=== PATIENT | male | born 1950 | race Caucasian/White ===

== ENCOUNTER → 2017-03-27 18:21 | Emergency (ER) | payer MEDICARE ==
[2017-03-27 19:25] VITALS: BP 140/63
== END | disposition left against medical advice (07) ==
LOC: ED 18:21
DX: R51 Headache (principal); Z53.20 Procedure and treatment not carried out because of patient's decision for unspecified reasons
CPT/HCPCS: 99281

== ENCOUNTER 2017-09-19 10:41 | Emergency (ER) | payer MEDICARE ==
[2017-09-19] MEDS ORDERED: methylPREDNISolone 125 MG* 2 ML VIAL IV ONE (10:59)
[2017-09-19] MEDS ORDERED: Albuterol/Ipratropium NEB.SOL* Albuterol 2.5 MG/Ipratropium 0.5 MG 3 ML ONE (11:12)
[2017-09-19] MEDS: Albuterol/Ipratropium NEB.SOL* Albuterol 2.5 MG/Ipratropium 0.5 MG 3 ML INH SCH (11:13)
[2017-09-19 11:27] LABS: Hematocrit 53 % (42-52); Hemoglobin 17.6 g/dl (14.0-18.0); Mean Corpuscular HGB Conc 33 g/dl (31-36); Mean Corpuscular Hemoglobin 30 pg (27-31); Mean Corpuscular Volume 90 fL (80-94); Mean Platelet Volume 9 um3 (7.4-10.4); Red Blood Count 5.86 10^6/ul (4.0-5.4); Red Cell Distribution Width 16 % (10.5-15)
[2017-09-19 11:30] LABS: PCO2 Arterial 40 mmHg (35-45)
[2017-09-19 11:42] LABS: Albumin 3.8 g/dL (3.2-5.2); BUN/Creatinine Ratio 8.5 (8-20); C Reactive Protein 16.28 mg/L (< 5.00); EGFR African American 79.7 (>60); Globulin 3.6 g/dL (2-4); Potassium 4.2 mmol/L (3.5-5.0); Total Protein 7.4 g/dL (6.4-8.9)
--- NOTE | 2017-09-19 12:04 | RAD ---
HISTORY: Shortness of breath COMPARISONS: August 25, 2017 VIEWS: 2: Frontal and lateral views of the chest. FINDINGS: CARDIOMEDIASTINAL SILHOUETTE: The cardiomediastinal silhouette is normal. MATEO: The mateo are normal. PLEURA: The costophrenic angles are sharp. No pleural abnormalities are noted. LUNG PARENCHYMA: There is hyperinflation with flattening of the diaphragm and expansion of the AP diameter of the chest. ABDOMEN: The upper abdomen is clear. There is no subphrenic gas. BONES AND SOFT TISSUES: No bone or soft tissue abnormalities are noted. OTHER: None. IMPRESSION: HYPERINFLATION, CONSISTENT WITH COPD. NO ACTIVE CARDIOPULMONARY DISEASE.
[2017-09-19] MEDS ORDERED: DOXYcycline CAP(*) 100 MG PO ONE (12:34)
[2017-09-19 13:04] VITALS: BP 128/67
--- NOTE | 2017-09-19 18:50 | ED ---
Jose Daniel Angela, scribed for Chandana Tony MD on 09/19/17 at 1101 . Shortness of Breath - HPI Summary HPI Summary: This pt is a 67 y/o male presenting to [facility] c/o intermittent SOB and non- productive cough since last year, worsening since last night. Pt reports he usually takes prednisone and his inhaler with relief of his SOB. He states his symptoms have returned again since last night. His SOB today is characterized as dyspnea at rest. He denies productive cough, fever, chest pain. PMHx: COPD, afib. Pt is a former smoker (quit date 1999). - History of Current Complaint Chief Complaint: EDShortnessOfBreath Time Seen by Provider: 09/19/17 10:54 Hx Obtained From: Patient Onset/Duration: Lasting Hours, Still Present Timing: Constant Dyspnea At: Rest Alleviating Factors: Bronchodilators Associated Signs & Symptoms: Cough (Nonproductive) - Allergy/Home Medications Allergies/Adverse Reactions: Allergies Allergy/AdvReac Type Severity Reaction Status Date / Time Vancomycin Allergy See Comment Verified 10/24/16 13:59 PMH/Surg Hx/FS Hx/Imm Hx Endocrine/Hematology History: Denies: Hx Diabetes Cardiovascular History: Reports: Hx Deep Vein Thrombosis, Hx Hypertension - CONTROL WITH MED, Other Cardiovascular Problems/Disorders - ATRIAL FIB IN THE PAST ? Denies: Hx Congestive Heart Failure, Hx Pacemaker/ICD Respiratory History: Reports: Hx Chronic Obstructive Pulmonary Disease (COPD), Hx Pulmonary Embolism - 08/2014, Other Respiratory Problems/Disorders - pulmonary artery bleed - 1999 Denies: Hx Asthma GI History: Reports: Other GI Disorders - polyps History: Denies: Hx Dialysis, Hx Renal Disease Musculoskeletal History: Reports: Hx Arthritis - RIGHT THUMB, Hx Back Problems - herniated disk, Other Musculoskeletal History - left leg amputation, right toes amputation Sensory History: Reports: Hx Contacts or Glasses - READING GLASSES Denies: Hx Hearing Aid Opthamlomology History: Reports: Hx Contacts or Glasses - READING GLASSES Neurological History: Reports: Hx Nerve Disease - HERITARY NEUROPATHY BILATERAL FEET, LEFT BKA, RIGHT MIDFOOT Psychiatric History: Reports: Hx Substance Abuse - etoh Denies: Hx Panic Disorder - Surgical History Surgery Procedure, Year, and Place: COILS IN CHEST ( NEED MORE INFORMATION - NOT ON ANY PRIOR MRI SCREENINGS - SEEN ON XRAYS - PER PATIENT THEY ARE CLIPPING ARTERY IN LUNG ) ([facility] APRIL 2002). TONSILS AND ADNOIDS CHILD;. R ROTATOR CUFF AT AGE 20;. R toes amputated 2011 [facility];. LEFT FOOT AMPUTATION [facility];. Left lower leg March 2014- [facility]; Hx Anesthesia Reactions: No Infectious Disease History: No Infectious Disease History: Denies: Hx Clostridium Difficile, Hx Hepatitis, Hx Human Immunodeficiency Virus (HIV), Hx Shingles, Hx Tuberculosis, Traveled Outside the [place] in Last 30 Days - Family History Known Family History: Positive: Other - Denies colorectal CA,anesthesia problems ,bleeding/clotting disorders - Social History Alcohol Use: Daily Alcohol Amount: 2 beers Hx Substance Use: No Substance Use Type: Reports: None Hx Tobacco Use: Yes Smoking Status (MU): Former Smoker Type: Cigarettes Amount Used/How Often: 2 PPD Length of Time of Smoking/Using Tobacco: FROM AGE 15-2000 (37 YEARS) Have You Smoked in the Last Year: No Review of Systems Negative: Fever, Chills Negative: Chest Pain Positive: Shortness Of Breath, Cough - non-productive Positive: Other - bilateral leg amputations Skin: Negative Neurological: Negative All Other Systems Reviewed And Are Negative: Yes Physical Exam - Summary Physical Exam Summary: VITAL SIGNS: Reviewed. GENERAL: Patient is an obese male who is lying comfortable in the stretcher. Patient is in some respiratory distress, speaking in full sentences. HEAD AND FACE: No signs of trauma. No ecchymosis, hematomas or skull depressions. No sinus tenderness. EYES: PERRLA, EOMI x 2, No injected conjunctiva, no nystagmus. EARS: Hearing grossly intact. Ear canals and tympanic membranes are within normal limits. MOUTH: Oropharynx within normal limits. NECK: Supple, trachea is midline, no adenopathy, no JVD, no carotid bruit, no c- spine tenderness, neck with full ROM. CHEST: Symmetric, no tenderness at palpation LUNGS: There are decreased breath sounds bilaterally with slight wheezing in both apices of the lungs. CVS: Regular rate and rhythm, S1 and S2 present, no murmurs or gallops appreciated. ABDOMEN: Soft, non-tender. No signs of distention. No rebound no guarding, and no masses palpated. Bowel sounds are normal. EXTREMITIES: no edema, no cyanosis or clubbing. Pt has bilateral lower extremity below the knee amputations. NEURO: Alert and oriented x 3. No acute neurological deficits. Speech is normal and follows commands. SKIN: Dry and warm Triage Information Reviewed: Yes Vital Signs On Initial Exam: Initial Vitals Temp Pulse Resp BP Pulse Ox 97.6 F 92 18 150/77 92 09/19/17 10:42 09/19/17 10:42 09/19/17 10:42 09/19/17 10:42 09/19/17 10:42 Vital Signs Reviewed: Yes Diagnostics - Vital Signs Vital Signs Temp Pulse Resp BP Pulse Ox 09/19/17 10:42 97.6 F 92 18 150/77 92 - Laboratory Lab Results: Lab Results 09/19/17 09/19/17 09/19/17 Range/Units 10:06 10:06 10:06 WBC 13.0 H (3.5-10.8) 10^3/ul RBC 5.86 H (4.0-5.4) 10^6/ul Hgb 17.6 (14.0-18.0) g/dl Hct 53 H (42-52) % MCV 90 (80-94) fL MCH 30 (27-31) pg MCHC 33 (31-36) g/dl RDW 16 H (10.5-15) % Plt Count 223 (150-450) 10^3/ul MPV 9 (7.4-10.4) um3 Neut % (Auto) 73.8 (38-83) % Lymph % (Auto) 10.9 L (25-47) % Gulf % (Auto) 10.9 H (1-9) % Eos % (Auto) 3.8 (0-6) % Baso % (Auto) 0.6 (0-2) % Absolute Neuts (auto) 9.6 H (1.5-7.7) 10^3/ul Absolute Lymphs (auto) 1.4 (1.0-4.8) 10^3/ul Absolute Monos (auto) 1.4 H (0-0.8) 10^3/ul Absolute Eos (auto) 0.5 (0-0.6) 10^3/ul Absolute Basos (auto) 0.1 (0-0.2) 10^3/ul Absolute Nucleated RBC 0.01 10^3/ul Nucleated RBC % 0.1 ABG pH (7.35-7.45) ABG pCO2 (35-45) mmHg ABG pO2 (80-100) mmHg ABG HCO3 (19-31) mmol/L ABG O2 Saturation (95-98) % ABG Base Excess (-2.0-2.0) Sodium 133 (133-145) mmol/L Potassium 4.2 (3.5-5.0) mmol/L Chloride 98 L (101-111) mmol/L Carbon Dioxide 27 (22-32) mmol/L Anion Gap 8 (2-11) mmol/L BUN 10 (6-24) mg/dL Creatinine 1.18 H (0.67-1.17) mg/dL Est GFR ( Amer) 79.7 (>60) Est GFR (Non-Af Amer) 62.0 (>60) BUN/Creatinine Ratio 8.5 (8-20) Glucose 106 H (70-100) mg/dL Calcium 10.0 (8.6-10.3) mg/dL Total Bilirubin 1.00 (0.2-1.0) mg/dL AST 20 (13-39) U/L ALT 14 (7-52) U/L Alkaline Phosphatase 113 H (34-104) U/L Troponin I 0.00 (<0.04) ng/mL C-Reactive Protein 16.28 H (< 5.00) mg/L B-Natriuretic Peptide 131 H ( - 100) pg/mL Total Protein 7.4 (6.4-8.9) g/dL Albumin 3.8 (3.2-5.2) g/dL Globulin 3.6 (2-4) g/dL Albumin/Globulin Ratio 1.1 (1-3) 09/19/ Range/Units 11:20 WBC (3.5-10.8) 10^3/ul RBC (4.0-5.4) 10^6/ul Hgb (14.0-18.0) g/dl Hct (42-52) % MCV (80-94) fL MCH (27-31) pg MCHC (31-36) g/dl RDW (10.5-15) % Plt Count (150-450) 10^3/ul MPV (7.4-10.4) um3 Neut % (Auto) (38-83) % Lymph % (Auto) (25-47) % Gulf % (Auto) (1-9) % Eos % (Auto) (0-6) % Baso % (Auto) (0-2) % Absolute Neuts (auto) (1.5-7.7) 10^3/ul Absolute Lymphs (auto) (1.0-4.8) 10^3/ul Absolute Monos (auto) (0-0.8) 10^3/ul Absolute Eos (auto) (0-0.6) 10^3/ul Absolute Basos (auto) (0-0.2) 10^3/ul Absolute Nucleated RBC 10^3/ul Nucleated RBC % ABG pH 7.43 (7.35-7.45) ABG pCO2 40 (35-45) mmHg ABG pO2 143 H (80-100) mmHg ABG HCO3 26.4 (19-31) mmol/L ABG O2 Saturation 98.4 H (95-98) % ABG Base Excess 2.0 (-2.0-2.0) Sodium (133-145) mmol/L Potassium (3.5-5.0) mmol/L Chloride (101-111) mmol/L Carbon Dioxide (22-32) mmol/L Anion Gap (2-11) mmol/L BUN (6-24) mg/dL Creatinine (0.67-1.17) mg/dL Est GFR ( Amer) (>60) Est GFR (Non-Af Amer) (>60) BUN/Creatinine Ratio (8-20) Glucose (70-100) mg/dL Calcium (8.6-10.3) mg/dL Total Bilirubin (0.2-1.0) mg/dL AST (13-39) U/L ALT (7-52) U/L Alkaline Phosphatase (34-104) U/L Troponin I (<0.04) ng/mL C-Reactive Protein (< 5.00) mg/L B-Natriuretic Peptide ( - 100) pg/mL Total Protein (6.4-8.9) g/dL Albumin (3.2-5.2) g/dL Globulin (2-4) g/dL Albumin/Globulin Ratio (1-3) Result Diagrams: 09/19/17 10:06 09/19/17 10:06 Lab Statement: Any lab studies that have been ordered have been reviewed, and results considered in the medical decision making process. - Radiology Chest XR Xray Interpretation: Positive (See Comments) - IMPRESSION: Hyperinflation, consistent with COPD. No active cardiopulmonary disease. ED physician has reviewed this radiology report and agrees. Radiology Interpretation Completed By: Radiologist - EKG 1105 Cardiac Rate: NL - 91 bpm EKG Rhythm: Atrial Fibrillation EKG Interpretation: No ST elevation Course/Dx - Course Assessment/Plan: This pt is a 67 y/o male presenting to [facility] c/o intermittent SOB and non-productive cough since last year, worsening since last night. Pt reports he usually takes prednisone and his inhaler with relief of his SOB. He states his symptoms have returned again since last night. His SOB today is characterized as dyspnea at rest. He denies productive cough, fever, chest pain. PMHx: COPD, afib. Pt is a former smoker (quit date 1999). Test results show WBC of 13, ABG without any significant abnormalities except for pO2 of 143 , creatinine of 1.18, CRP of 16.28. Chest XR shows hyperinflation, consistent with COPD. No active cardiopulmonary disease. In the ED course, the pt was given IV fluids, duonebs and solu-medrol and his symptoms improved. Because the pt has increased WBC and COPD, I placed the pt on doxycycline. Since the pt is feeling better he will be discharged home with follow up from his PCP. Pt is hemodynamically stable, alert and oriented x3. - Diagnoses Differential Diagnosis/HQI/PQRI: Positive: Asthma, Bronchitis, CHF, Chest Wall Pain, COPD Exacerbation, Pneumonia Provider Diagnoses: COPD exacerbation Discharge - Discharge Plan Condition: Stable Disposition: HOME Prescriptions: Albuterol HFA INHALER* [Ventolin HFA Inhaler*] 1 puff INH Q4H PRN #1 mdi PRN Reason: Wheezing DOXYcycline CAP(*) [DOXYcycline 100MG CAP(*)] 100 mg PO BID #9 cap predniSONE TAB* [Deltasone TAB*] 40 mg PO DAILY #8 tab Patient Education Materials: COPD (Chronic Obstructive Pulmonary Disease) (ED) Referrals: Jassi Manriquez MD [Primary Care Provider] - Additional Instructions: Please follow up with your primary care provider. RETURN TO THE ED FOR ANY WORSENING SYMPTOMS. The documentation as recorded by the Jose carbone Angela accurately reflects the service I personally performed and the decisions made by me, Chandana Tony MD.
--- NOTE | 2017-09-22 13:01 | PN ---
Progress Note - Progress Note Date of Service: 09/19/17 Note: patient diagnosed with COPD exacerbation and placed on doxycycline. patient had sputum culture obtained. grew 1+ yeast and 3+ normal bianca. chest xray obtained at visit and was negative for pneumonia. will forward these results to patient's PCP for comprehensive follow up. no change in treatment at this time as it does not appear to be fungal pneumonia.
== END 2017-09-19 13:11 | disposition home or self-care (01) ==
LOC: ED 10:41
DX: J44.1 Chronic obstructive pulmonary disease with (acute) exacerbation (principal); Z87.891 Personal history of nicotine dependence; Z86.718 Personal history of other venous thrombosis and embolism; I10 Essential (primary) hypertension; G60.9 Hereditary and idiopathic neuropathy, unspecified
CPT/HCPCS: 36415; 36600; 71020; 80053; 82803; 83880; 84484; 85025; 86140; 87070; 87205; 93005; 94640; 96374; 99283; A9270-GY; J2930

== ENCOUNTER 2022-10-05 12:27 | Inpatient (IN) ==
[2022-10-05 13:53] LABS: ABS Lymphocytes 0.4 10^3/ul (1.0-4.8); ABS Monocytes 0.4 10^3/ul (0-0.8); ABS Neutrophils 9.4 10^3/ul (1.5-7.7); Hematocrit 26 % (42-52); Hemoglobin 7.1 g/dL (14.0-18.0); Lymphocyte % 3.6 %; Mean Corpuscular HGB Conc 28 g/dL (31-36); Mean Corpuscular Hemoglobin 18 pg (27-31); Mean Corpuscular Volume 64 fL (80-94); Mean Platelet Volume 8.5 fL (7.4-10.4); Nucleated Red Blood Cells % 0.3; Platelet Count 347 10^3/uL (150-450); Red Blood Count 4.02 10^6 /uL (4.18-5.48); Red Cell Distribution Width 21 % (10-15); White Blood Count 10.2 10^3/uL (3.5-10.8)
[2022-10-05 14:00] LABS: Activated Partial Thrombo Time 31.9 seconds (26.0-38.0); INR 2.73 (0.89-1.11)
[2022-10-05 14:14] LABS: High Sens Troponin Baseline 7 pg/mL (<20)
[2022-10-05 14:28] LABS: ALT 7 U/L (7-52); AST 10 U/L (13-39); Albumin 3.7 g/dL (3.2-5.2); Albumin/Globulin Ratio 1.5 (1-3); Alkaline Phosphatase 101 U/L (35-149); Anion Gap 7 mmol/L (2-11); Blood Urea Nitrogen 14 mg/dL (6-24); CO2 Carbon Dioxide 26 mmol/L (22-32); Calcium 9.1 mg/dL (8.6-10.3); Chloride 95 mmol/L (101-111); Globulin 2.5 g/dL (2-4); Glucose 109 mg/dL (70-100); Sodium 128 mmol/L (135-145); Total Protein 6.2 g/dL (6.4-8.9)
[2022-10-05 15:21] LABS: High Sensitivity Troponin 1 Hr 6 pg/mL (<20)
[2022-10-05 16:10] LABS: Digoxin 1.1 ng/ml (0.8-2.0)
[2022-10-05] MEDS ORDERED: Ondansetron 4 mg VIAL 2 MG/ML 2 ml VIAL IV PRN (16:29)
[2022-10-05] MEDS ORDERED: Albuterol HFA INHALER 8 gm MDI INH PRN (16:31)
[2022-10-05] MEDS: Furosemide 40 mg/4 ml IV VIAL IV SLOW PU SCH (17:34)
[2022-10-05 17:40] LABS: Total Iron Binding Capacity 463 mcg/dL (250-450); Transferrin 331 mg/dL (203-362)
[2022-10-05 17:41] LABS: % Iron Saturation 4 % (15-55); Iron < 20 ug/dL (50-212); Unsaturated Iron Binding 443 ug/dL
[2022-10-05 17:57] LABS: Ferritin 3.9 ng/mL (24-336)
[2022-10-05 18:01] LABS: Corrected Retic Count 1.7 % (0.5-1.5); Hematocrit for Retic CNT 25 % (42-52); RBC Retic Count 3.87 10^6/uL (4.18-5.48)
[2022-10-05 18:19] LABS: Folate 10.64 ng/mL (5.90-24.80); Vitamin B12 448 pg/mL (180-914)
[2022-10-06] MEDS: Albuterol/Ipratropium NEB.SOL (2.5/0.5 MG) 3 ML NEB.SOLN INH PRN ×2 (00:14→07:59)
[2022-10-06 06:35] LABS: ABS Monocytes 1.5 10^3/ul (0-0.8); ABS Neutrophils 9.4 10^3/ul (1.5-7.7); Eosinophil % 0.4 %; Hematocrit 24 % (42-52); Hemoglobin 6.8 g/dL (14.0-18.0); Lymphocyte % 15.7 %; Mean Corpuscular HGB Conc 28 g/dL (31-36); Mean Corpuscular Hemoglobin 18 pg (27-31); Mean Corpuscular Volume 63 fL (80-94); Mean Platelet Volume 8.2 fL (7.4-10.4); Nucleated Red Blood Cells % 0.3; Platelet Count 336 10^3/uL (150-450); Red Blood Count 3.87 10^6 /uL (4.18-5.48); Red Cell Distribution Width 21 % (10-15)
[2022-10-06 06:43] LABS: Magnesium 1.6 mg/dL (1.9-2.7); Potassium 3.5 mmol/L (3.5-5.0); eGFR CKD-EPI 67.1 (>60)
[2022-10-06] MEDS: Furosemide 40 mg/4 ml IV VIAL IV SLOW PU SCH ×2 (09:01→16:58)
[2022-10-06] MEDS ORDERED: Magnesium Sulfate 2 gm BAG 2 GM/50 ML BAG IVPB ONE (09:35)
[2022-10-06 10:23] LABS: Hematocrit 25 % (42-52); Hemoglobin 6.9 g/dL (14.0-18.0); Mean Corpuscular HGB Conc 28 g/dL (31-36); Mean Corpuscular Hemoglobin 17 pg (27-31); Mean Corpuscular Volume 62 fL (80-94); Platelet Count 365 10^3/uL (150-450); Red Blood Count 3.99 10^6 /uL (4.18-5.48); Red Cell Distribution Width 20 % (10-15); White Blood Count 12.4 10^3/uL (3.5-10.8)
[2022-10-06 10:24] LABS: ABS Eosinophils 0.1 10^3/ul (0-0.6); ABS Lymphocytes 1.5 10^3/ul (1.0-4.8); ABS Monocytes 1.6 10^3/ul (0-0.8); ABS Neutrophils 9.2 10^3/ul (1.5-7.7); ABS Nucleated RBC 0.1 10^3/ul; Eosinophil % 0.4 %; Nucleated Red Blood Cells % 0.4
[2022-10-06] MEDS: Pantoprazole VIAL 40 MG VIAL IV SCH (10:24)
[2022-10-06] MEDS ORDERED: Midazolam 5 mg/5 ml VIAL 1 mg/ml 5 ml VIAL (5 mg) ONE (17:38)
[2022-10-06] MEDS ORDERED: fentaNYL 100 mcg/2 ml 50 MCG/ML VIAL ONE (17:38)
[2022-10-06 19:53] LABS: Hematocrit 28 % (42-52); Hemoglobin 8.2 g/dL (14.0-18.0)
[2022-10-07 06:03] LABS: Calcium 8.7 mg/dL (8.6-10.3); Magnesium 1.7 mg/dL (1.9-2.7); Potassium 3.3 mmol/L (3.5-5.0); eGFR CKD-EPI 67.1 (>60)
[2022-10-07] MEDS: Furosemide 40 mg/4 ml IV VIAL IV SLOW PU SCH (08:12)
[2022-10-07] MEDS ORDERED: Iron Sucrose 200 MG in NS 0.9% 100 ml BAG 100 ML IVPB ONE (08:40)
[2022-10-07 08:56] LABS: ABS Basophils 0.1 10^3/ul (0-0.2); ABS Eosinophils 0.1 10^3/ul (0-0.6); ABS Lymphocytes 1.8 10^3/ul (1.0-4.8); ABS Monocytes 1.5 10^3/ul (0-0.8); ABS Neutrophils 7.3 10^3/ul (1.5-7.7); Hematocrit 26 % (42-52); Hemoglobin 7.4 g/dL (14.0-18.0); Lymphocyte % 16.5 %; Mean Corpuscular HGB Conc 29 g/dL (31-36); Mean Corpuscular Hemoglobin 19 pg (27-31); Mean Corpuscular Volume 65 fL (80-94); Mean Platelet Volume 8.7 fL (7.4-10.4); Nucleated Red Blood Cells % 0.2; Platelet Count 311 10^3/uL (150-450); Red Cell Distribution Width 22 % (10-15); White Blood Count 10.8 10^3/uL (3.5-10.8)
[2022-10-07] MEDS: Pantoprazole VIAL 40 MG VIAL IV SCH (09:49)
[2022-10-07] MEDS ORDERED: Magnesium Sulfate IV 3 GM in NS 0.9% 100 ml BAG 100 ML IVPB ONE (09:50)
[2022-10-07 12:37] VITALS: BP 151/61
[2022-10-07 13:06] LABS: Hematocrit 29 % (42-52); Hemoglobin 8.2 g/dL (14.0-18.0)
== END 2022-10-07 14:40 | disposition home or self-care (01) | DRG 291 ==
LOC: ED 12:27 → EDHOLD 16:29 → SUATTDRO 16:29 → EDHOLD 21:00 → MEDTELE 22:12
PROVIDERS: ADMIT Internal Medicine; ATTEND Hospitalist

== ENCOUNTER 2022-11-23 14:40 | Observation (INO) ==
[2022-11-23 16:09] LABS: ABS Basophils 0.1 10^3/ul (0-0.2); ABS Eosinophils 0.1 10^3/ul (0-0.6); ABS Lymphocytes 0.6 10^3/ul (1.0-4.8); ABS Monocytes 0.9 10^3/ul (0-0.8); ABS Neutrophils 8.7 10^3/ul (1.5-7.7); Eosinophil % 0.5 %; Hematocrit 27 % (42-52); Hemoglobin 7.9 g/dL (14.0-18.0); Lymphocyte % 6.1 %; Mean Corpuscular HGB Conc 30 g/dL (31-36); Mean Corpuscular Hemoglobin 20 pg (27-31); Mean Corpuscular Volume 66 fL (80-94); Mean Platelet Volume 8.7 fL (7.4-10.4); Platelet Count 234 10^3/uL (150-450); Red Blood Count 4.02 10^6 /uL (4.18-5.48); Red Cell Distribution Width 22 % (10-15); White Blood Count 10.4 10^3/uL (3.5-10.8)
[2022-11-23 16:30] LABS: Calcium 8.2 mg/dL (8.6-10.3); Creatinine, Serum 1.03 mg/dL (0.67-1.17); Potassium 4.2 mmol/L (3.5-5.0); eGFR CKD-EPI 78.1 (>60)
[2022-11-23] MEDS ORDERED: Albuterol HFA INHALER 8 gm MDI INH PRN (17:16)
[2022-11-23] MEDS ORDERED: Albuterol/Ipratropium NEB.SOL (2.5/0.5 MG) 3 ML NEB.SOLN INH PRN (17:16)
[2022-11-23] MEDS ORDERED: PEG 3000 GI LAVAGE 1 GALLON PO ONE (17:20)
[2022-11-23] MEDS ORDERED: Fluticasone NASAL SPRAY 50MCG 16 gm SPRAY BTL INTRANASAL PRN (17:56)
[2022-11-23 18:13] LABS: Digoxin 1.9 ng/ml (0.8-2.0)
[2022-11-23 22:58] LABS: Hematocrit 26 % (42-52)
[2022-11-24 06:49] LABS: Calcium 8.2 mg/dL (8.6-10.3); Magnesium 1.5 mg/dL (1.9-2.7); Potassium 3.6 mmol/L (3.5-5.0)
[2022-11-24 07:05] LABS: ABS Basophils 0.1 10^3/ul (0-0.2); ABS Eosinophils 0.2 10^3/ul (0-0.6); ABS Lymphocytes 1.4 10^3/ul (1.0-4.8); ABS Monocytes 1.2 10^3/ul (0-0.8); ABS Neutrophils 7.1 10^3/ul (1.5-7.7); Eosinophil % 1.7 %; Hematocrit 26 % (42-52); Hemoglobin 7.5 g/dL (14.0-18.0); Lymphocyte % 14.2 %; Mean Corpuscular HGB Conc 29 g/dL (31-36); Mean Corpuscular Hemoglobin 19 pg (27-31); Mean Corpuscular Volume 66 fL (80-94); Mean Platelet Volume 8.6 fL (7.4-10.4); Platelet Count 237 10^3/uL (150-450); Red Blood Count 3.88 10^6 /uL (4.18-5.48); Red Cell Distribution Width 22 % (10-15)
[2022-11-24] MEDS: CMC:FLUTICAS/UMECLI/VILANT 100-62.5-25 MDI (NF) INH SCH (08:37)
[2022-11-24] MEDS ORDERED: Magnesium Sulfate 2 gm BAG 2 GM/50 ML BAG IVPB ONE (09:01)
[2022-11-24] MEDS ORDERED: PEG 3000 GI LAVAGE 1 GALLON PO ONE (09:15)
[2022-11-24] MEDS: Iron Sucrose 200 MG in NS 0.9% 100 ml BAG 100 ML IVPB SCH (09:47)
[2022-11-24] MEDS ORDERED: Midazolam 10 mg/10 ml VIAL 1 mg/ml 10 ml VIAL (10 mg) ONE (15:10)
[2022-11-24] MEDS ORDERED: fentaNYL 100 mcg/2 ml 50 MCG/ML VIAL ONE (15:10)
[2022-11-25 07:08] LABS: ABS Basophils 0.1 10^3/ul (0-0.2); ABS Eosinophils 0.2 10^3/ul (0-0.6); ABS Lymphocytes 1.6 10^3/ul (1.0-4.8); ABS Monocytes 1.1 10^3/ul (0-0.8); ABS Neutrophils 7.1 10^3/ul (1.5-7.7); Eosinophil % 2.5 %; Hematocrit 26 % (42-52); Hemoglobin 7.8 g/dL (14.0-18.0); Lymphocyte % 15.9 %; Mean Corpuscular HGB Conc 30 g/dL (31-36); Mean Corpuscular Hemoglobin 20 pg (27-31); Mean Corpuscular Volume 68 fL (80-94); Mean Platelet Volume 8.8 fL (7.4-10.4); Nucleated Red Blood Cells % 0.1; Platelet Count 213 10^3/uL (150-450); Red Blood Count 3.87 10^6 /uL (4.18-5.48); Red Cell Distribution Width 23 % (10-15); White Blood Count 10.1 10^3/uL (3.5-10.8)
[2022-11-25 07:39] LABS: Calcium 7.9 mg/dL (8.6-10.3); Creatinine, Serum 1.01 mg/dL (0.67-1.17); Potassium 3.6 mmol/L (3.5-5.0)
[2022-11-25 08:12] LABS: Magnesium 1.8 mg/dL (1.9-2.7)
[2022-11-25] MEDS: CMC:FLUTICAS/UMECLI/VILANT 100-62.5-25 MDI (NF) INH SCH (08:21)
[2022-11-25] MEDS ORDERED: Magnesium Sulfate 2 gm BAG 2 GM/50 ML BAG IVPB ONE (08:31)
[2022-11-25] MEDS: Iron Sucrose 200 MG in NS 0.9% 100 ml BAG 100 ML IVPB SCH (08:56)
[2022-11-25 15:23] VITALS: BP 155/66
== END 2022-11-25 16:20 | disposition home or self-care (01) ==
LOC: ED 14:40 → EDHOLD 14:40 → SUATTDRO 16:55 → MED 20:55
PROVIDERS: ADMIT Internal Medicine; ATTEND Internal Medicine

== ENCOUNTER 2022-12-26 06:32 | Inpatient (IN) ==
[~2022-12-26 06:32] MED LIST: Ertapenem 1 GM in NS 0.9% 50 ML BAG IVPB SCH; Lactated Ringers 1000 ml BAG 1,000 ML IV SCH
[2022-12-26] MEDS ORDERED: Rocuronium 50 mg VIAL 10 mg/ml 5 ml VIAL (50 mg) ONE ×3 (06:47→10:44)
[2022-12-26] MEDS ORDERED: Midazolam 2 mg/2 ml VIAL 1 mg/ml 2 ml VIAL (2 mg) ONE (06:47)
[2022-12-26] MEDS ORDERED: Propofol 10 MG/ML 20 ML BTL ONE ×3 (06:47→11:02)
[2022-12-26] MEDS ORDERED: Lidocaine 2% PF 5 ML VIAL ONE ×2 (06:47→07:56)
[2022-12-26] MEDS ORDERED: fentaNYL 250 mcg/5 ml 50 MCG/ML 5 ml VIAL (250 MCG) ONE (06:48)
[2022-12-26] MEDS ORDERED: Buffered Lidocaine 1% SYRIN 1 ml ONE (07:06)
[2022-12-26] MEDS ORDERED: Bupivacaine 0.25% SDV 30 ML ONE (07:13)
[2022-12-26] MEDS ORDERED: Hydrocortisone INJ 100 MG/2ML 2 ML VIAL ONE (07:29)
[2022-12-26] MEDS: Buffered Lidocaine 1% SYRIN 1 ml INTRADERM ONE (07:33)
[2022-12-26] MEDS ORDERED: Etomidate 20 mg/10 ml 2 MG/ML 10 ml VIAL ONE (07:55)
[2022-12-26] MEDS ORDERED: Dexamethasone IV 4 MG/ML VIAL 1 ml VIAL ONE (08:36)
[2022-12-26] MEDS ORDERED: Acetaminophen IV 1 GM/100ML 1,000 MG/100 ML BAG IV ONE (08:53)
[2022-12-26] MEDS ORDERED: Metoprolol Tartrate 5 mg VIAL 5 ml VIAL (1 mg/ml) ONE (09:12)
[2022-12-26] MEDS ORDERED: Phenylephrine 40 mcg/mL 10mL (400mcg) SYRINGE ONE (09:14)
[2022-12-26] MEDS ORDERED: Ondansetron 4 mg VIAL 2 MG/ML 2 ml VIAL IV PRN ×2 (12:28→12:35)
[2022-12-26] MEDS ORDERED: Albuterol HFA INHALER 8 gm MDI INH PRN (12:31)
[2022-12-26] MEDS ORDERED: Albuterol/Ipratropium NEB.SOL (2.5/0.5 MG) 3 ML NEB.SOLN INH PRN (12:31)
[2022-12-26] MEDS ORDERED: fentaNYL 100 mcg/2 ml 50 MCG/ML VIAL IV PRN (12:35)
[2022-12-26] MEDS ORDERED: Naloxone 0.4 mg VIAL 0.4 mg/ml 1 ml VIAL IV PRN (12:35)
[2022-12-26] MEDS ORDERED: HYDROmorphone 0.5 MG/0.5 ML SYRINGE IV SLOW PU PRN (12:35)
[2022-12-26 13:19] LABS: Calcium 8.1 mg/dL (8.6-10.3); Creatinine, Serum 1.12 mg/dL (0.67-1.17); Potassium 3.3 mmol/L (3.5-5.0); eGFR CKD-EPI 70.7 (>60)
[2022-12-26] MEDS ORDERED: Potassium EFFERVES 25 meq TAB PO ONE (13:23)
[2022-12-26] MEDS ORDERED: KCL 20 MEQ/100 ML IVPREMIX 20 MEQ/100 ML BAG IV ONE (13:23)
[2022-12-26] MEDS ORDERED: Hydrocortisone INJ 100 MG/2ML 2 ML VIAL IV SCH (14:00)
[2022-12-26 14:11] LABS: Hematocrit 42 % (42-52); Hemoglobin 12.8 g/dL (14.0-18.0); Mean Corpuscular HGB Conc 31 g/dL (31-36); Mean Corpuscular Hemoglobin 24 pg (27-31); Mean Corpuscular Volume 78 fL (80-94); Mean Platelet Volume 8.8 fL (7.4-10.4); Platelet Count 159 10^3/uL (150-450); Red Blood Count 5.36 10^6 /uL (4.18-5.48); Red Cell Distribution Width 28 % (10-15); White Blood Count 14.6 10^3/uL (3.5-10.8)
[2022-12-26 14:17] LABS: Calcium 8.3 mg/dL (8.6-10.3); Magnesium 1.6 mg/dL (1.9-2.7); Potassium 3.4 mmol/L (3.5-5.0)
[2022-12-26 14:23] LABS: Creatinine, Serum 1.13 mg/dL (0.67-1.17); eGFR CKD-EPI 69.9 (>60)
[2022-12-26] MEDS ORDERED: Magnesium Sulfate IV 3 GM in NS 0.9% 100 ml BAG 100 ML IVPB ONE (15:42)
[2022-12-26] MEDS ORDERED: Fluticasone NASAL SPRAY 50MCG 16 gm SPRAY BTL INTRANASAL PRN (16:00)
[2022-12-26] MEDS: Hydrocortisone INJ 100 MG/2ML 2 ML VIAL IV SCH ×2 (16:02→21:14)
[2022-12-26] MEDS: Acetaminophen IV 1 GM/100ML 1,000 MG/100 ML BAG IV SCH ×2 (18:17→21:12)
[2022-12-27 05:40] LABS: Hematocrit 41 % (42-52); Hemoglobin 12.6 g/dL (14.0-18.0); Mean Corpuscular HGB Conc 31 g/dL (31-36); Mean Corpuscular Hemoglobin 24 pg (27-31); Mean Corpuscular Volume 78 fL (80-94); Mean Platelet Volume 9.2 fL (7.4-10.4); Platelet Count 173 10^3/uL (150-450); Red Blood Count 5.24 10^6 /uL (4.18-5.48); Red Cell Distribution Width 28 % (10-15); White Blood Count 16.9 10^3/uL (3.5-10.8)
[2022-12-27] MEDS: Hydrocortisone INJ 100 MG/2ML 2 ML VIAL IV SCH (05:42)
[2022-12-27] MEDS: Acetaminophen IV 1 GM/100ML 1,000 MG/100 ML BAG IV SCH ×4 (05:54→20:17)
[2022-12-27 06:08] LABS: ABS Lymphocytes 0.7 10^3/ul (1.0-4.8); ABS Monocytes 1.3 10^3/ul (0-0.8); ABS Neutrophils 14.9 10^3/ul (1.5-7.7)
[2022-12-27 06:17] LABS: Calcium 8.5 mg/dL (8.6-10.3); Creatinine, Serum 1.25 mg/dL (0.67-1.17); Magnesium 2.3 mg/dL (1.9-2.7); Potassium 4.3 mmol/L (3.5-5.0); eGFR CKD-EPI 61.9 (>60)
[2022-12-27] MEDS: FLUTICAS/UMECLI/VILANT 100-62.5-25 MDI (NF) INH SCH (08:27)
[2022-12-27] MEDS: Enoxaparin 40 MG/0.4 ML SYR SUBCUT SCH (08:35)
[2022-12-27] MEDS: Buffered Lidocaine 1% SYRIN 1 ml INTRADERM ONE (08:44)
[2022-12-27] MEDS ORDERED: Influenza vaccine *QUAD* *2022-23* 0.5 ML SYRINGE IM ONE (09:00)
[2022-12-27] MEDS: Benzocaine/Menthol LOZ MT PRN ×2 (12:36→23:29)
[2022-12-27] MEDS ORDERED: Hydrocortisone INJ 100 MG/2ML 2 ML VIAL IV SCH (18:00)
[2022-12-28 06:44] LABS: Hematocrit 38 % (42-52); Hemoglobin 11.5 g/dL (14.0-18.0); Mean Corpuscular HGB Conc 31 g/dL (31-36); Mean Corpuscular Hemoglobin 24 pg (27-31); Mean Corpuscular Volume 79 fL (80-94); Mean Platelet Volume 9.1 fL (7.4-10.4); Platelet Count 173 10^3/uL (150-450); Red Blood Count 4.74 10^6 /uL (4.18-5.48); Red Cell Distribution Width 28 % (10-15); White Blood Count 17.1 10^3/uL (3.5-10.8)
[2022-12-28] MEDS: Acetaminophen IV 1 GM/100ML 1,000 MG/100 ML BAG IV SCH ×4 (06:44→16:31)
[2022-12-28 07:00] LABS: Calcium 8.6 mg/dL (8.6-10.3); Creatinine, Serum 1.42 mg/dL (0.67-1.17); eGFR CKD-EPI 53.2 (>60)
[2022-12-28] MEDS: FLUTICAS/UMECLI/VILANT 100-62.5-25 MDI (NF) INH SCH (07:35)
[2022-12-28] MEDS ORDERED: NS 0.9% 500 ml BAG 500 ML IV ONE (07:48)
[2022-12-28] MEDS: Enoxaparin 40 MG/0.4 ML SYR SUBCUT SCH (08:19)
[2022-12-28 08:37] LABS: ABS Lymphocytes 1.9 10^3/ul (1.0-4.8); ABS Monocytes 1.8 10^3/ul (0-0.8); ABS Neutrophils 13.3 10^3/ul (1.5-7.7); Eosinophil % 0.2 %; Lymphocyte % 11.2 %
[2022-12-28] MEDS: Lactated Ringers 1000 ml BAG 1,000 ML IV SCH ×2 (12:30→21:25)
[2022-12-28] MEDS: Benzocaine/Menthol LOZ MT PRN (21:39)
[2022-12-29] MEDS: Acetaminophen IV 1 GM/100ML 1,000 MG/100 ML BAG IV SCH ×2 (00:31→06:22)
[2022-12-29 05:47] LABS: Hematocrit 31 % (42-52); Hemoglobin 9.6 g/dL (14.0-18.0); Mean Corpuscular HGB Conc 31 g/dL (31-36); Mean Corpuscular Hemoglobin 24 pg (27-31); Mean Corpuscular Volume 79 fL (80-94); Mean Platelet Volume 8.9 fL (7.4-10.4); Platelet Count 167 10^3/uL (150-450); Red Blood Count 3.93 10^6 /uL (4.18-5.48); Red Cell Distribution Width 27 % (10-15); White Blood Count 10.5 10^3/uL (3.5-10.8)
[2022-12-29 05:50] LABS: ABS Eosinophils 0.1 10^3/ul (0-0.6); ABS Monocytes 1.3 10^3/ul (0-0.8); ABS Neutrophils 7.1 10^3/ul (1.5-7.7); Eosinophil % 1.3 %; Lymphocyte % 18.6 %
[2022-12-29 06:13] LABS: Calcium 7.9 mg/dL (8.6-10.3); Creatinine, Serum 1.08 mg/dL (0.67-1.17); Magnesium 1.3 mg/dL (1.9-2.7); Potassium 3.8 mmol/L (3.5-5.0); eGFR CKD-EPI 73.8 (>60)
[2022-12-29 07:31] VITALS: BP 144/73
[2022-12-29] MEDS ORDERED: Magnesium Sulfate IV 3 GM in NS 0.9% 100 ml BAG 100 ML IVPB ONE (07:39)
[2022-12-29] MEDS: Enoxaparin 40 MG/0.4 ML SYR SUBCUT SCH (08:06)
[2022-12-29] MEDS: FLUTICAS/UMECLI/VILANT 100-62.5-25 MDI (NF) INH SCH (08:34)
== END 2022-12-29 11:45 | disposition home or self-care (01) | DRG 330 ==
LOC: AA 06:32 → SSU 12:29
PROVIDERS: ADMIT Surgery; ATTEND Surgery

== ENCOUNTER 2024-08-06 20:45 | Inpatient (IN) ==
[2024-08-06] MEDS: Lactated Ringers 1000 ml BAG 1,000 ML IV ONE ×2 (21:30→22:35)
[2024-08-06 21:39] LABS: ABS Basophils 0.1 10^3/uL (0.0-0.1); ABS Eosinophils 0.1 10^3/uL (0.0-0.5); ABS Lymphocytes 1.4 10^3/uL (1.0-4.8); ABS Monocytes 1.2 10^3/uL (0.0-1.1); ABS Neutrophils 9.1 10^3/uL (1.5-7.6); ABS Nucleated RBC 0.01 10^3/ul; Eosinophil % 0.6 %; Hematocrit 35.5 % (38-53); Hemoglobin 11.8 g/dL (13.2-16.3); Lymphocyte % 11.6 %; Mean Corpuscular Hgb Conc 33.3 g/dL (31-36); Mean Platelet Volume 7.9 fL (7.5-11.2); Platelet Count 250 10^3/uL (150-450); Red Cell Distribution Width 14.5 % (12-17); White Blood Count 11.9 10^3/uL (3.6-10.2)
[2024-08-06 22:04] LABS: Activated Partial Thrombo Time 47.7 seconds (26.0-38.0)
[2024-08-06 22:11] LABS: INR 6.75 (0.85-1.14)
[2024-08-06 22:27] LABS: Albumin 2.3 g/dL (3.2-5.2); Albumin/Globulin Ratio 0.7 (1-3); C Reactive Protein 106.78 mg/L (<8.01); Calcium 8.1 mg/dL (8.6-10.3); Creatinine, Serum 1.28 mg/dL (0.67-1.17); Globulin 3.2 g/dL (2-4); Potassium 4.1 mmol/L (3.5-5.0); Total Bilirubin 1.3 mg/dL (0.2-1.0); Total Protein 5.5 g/dL (6.4-8.9); eGFR CKD-EPI 59.5 (>60)
[2024-08-06] MEDS: Piperacillin/Tazobac 3.375 BAG 3.375 GM/100 ML BAG IV ONE (22:35)
[2024-08-06 22:40] LABS: Urine Appearance Extra Turbid; Urine Bacteria Absent /HPF (Absent); Urine Bilirubin Negative (Negative); Urine Blood 3+ (Negative); Urine Color Dark-Yellow; Urine Glucose Negative (Negative); Urine Ketones 1+ (Negative); Urine Nitrite Negative (Negative); Urine Protein 1+ (>=30 mg/dL) (Negative); Urine Red Blood Cell 3+(>10/hpf) /HPF (0-Trace); Urine Specific Gravity 1.017 (1.002-1.030); Urine Squamous Epithelial Cell Present /HPF (Absent); Urine Urobilinogen Negative (Negative); Urine White Blood Cell 3+(>20/hpf) /HPF (0-Trace); Urine pH 5.5 (5.0-8.0)
[2024-08-06 23:08] LABS: High Sensitivity Troponin 1 Hr 16 pg/mL (<20)
[2024-08-07] MEDS ORDERED: Norepinephrine 4 MG/250mL D5W 4,000 MCG/250 ML BAG IV ONE (00:48)
[2024-08-07] MEDS: Norepinephrine 4 MG/250mL D5W 4,000 MCG/250 ML BAG IV SCH (01:28)
[2024-08-07] MEDS ORDERED: Vancomycin 1,000 MG in NS 0.9% 250 ml 250 ML IVPB ONE (01:45)
[2024-08-07] MEDS ORDERED: Zosyn per Pharmacy NOTE FOLLOW UP SCH (02:00)
[2024-08-07] MEDS ORDERED: Vancomycin per Pharmacy 1 EA NOTE FOLLOW UP SCH (02:00)
[2024-08-07 02:09] LABS: Magnesium 1.4 mg/dL (1.9-2.7)
[2024-08-07 02:33] LABS: Digoxin 0.7 ng/ml (0.8-2.0)
[2024-08-07] MEDS: Iodixanol (CONTRAST) 320 MG/ML 100 ML SDV IV ONE (03:36)
[2024-08-07 03:45] LABS: TSH Ultra Thyroid Stim Horm 11.53 mcIU/mL (0.34-5.60)
[2024-08-07 03:55] LABS: Folate 6.22 ng/mL (5.90-24.80)
[2024-08-07] MEDS ORDERED: Albuterol HFA INHALER 8 gm MDI INH SCH (04:00)
[2024-08-07] MEDS: Magnesium Sulfate 2 gm BAG 2 GM/50 ML BAG IVPB ONE (04:23)
[2024-08-07] MEDS: Vancomycin 1500 MG IV - x ONCE IVPB ONE (04:50)
[2024-08-07] MEDS: Magnesium Sulfate IV 1GM/100ML 1 GM/100 ML BAG IV ONE (05:27)
[2024-08-07 05:30] LABS: ABS Eosinophils 0.1 10^3/uL (0.0-0.5); ABS Lymphocytes 1.3 10^3/uL (1.0-4.8); ABS Neutrophils 6.3 10^3/uL (1.5-7.6); Eosinophil % 1.4 %; Hematocrit 31.9 % (38-53); Hemoglobin 10.7 g/dL (13.2-16.3); Lymphocyte % 14.9 %; Mean Corpuscular Hemoglobin 32.1 pg (27-33); Mean Corpuscular Hgb Conc 33.4 g/dL (31-36); Mean Platelet Volume 8.7 fL (7.5-11.2); Platelet Count 225 10^3/uL (150-450); Red Blood Count 3.32 10^6/uL (4.06-5.63); Red Cell Distribution Width 14.9 % (12-17); White Blood Count 8.8 10^3/uL (3.6-10.2)
[2024-08-07 05:40] LABS: ALT 7 U/L (7-52); Albumin/Globulin Ratio 0.7 (1-3); Alkaline Phosphatase 163 U/L (35-149); Anion Gap 7 mmol/L (2-16); Blood Urea Nitrogen 10 mg/dL (6-24); CO2 Carbon Dioxide 29 mmol/L (22-32); Calcium 7.6 mg/dL (8.6-10.3); Chloride 100 mmol/L (101-111); Creatinine, Serum 1.24 mg/dL (0.67-1.17); Globulin 2.8 g/dL (2-4); Glucose 95 mg/dL (70-100); Magnesium 1.4 mg/dL (1.9-2.7); Sodium 136 mmol/L (135-145); Total Bilirubin 1.1 mg/dL (0.2-1.0); Total Protein 4.8 g/dL (6.4-8.9); eGFR CKD-EPI 61.8 (>60)
[2024-08-07 06:53] LABS: Potassium Redraw 3.5 mmol/L (3.5-5.0)
[2024-08-07] MEDS: Piperacillin/Tazobac 3.375 BAG 3.375 GM/100 ML BAG IV ONE (07:01)
[2024-08-07] MEDS: Sulfur Hexaflouride MICROSPHR 25 MG VIAL IV PRN (08:15)
[2024-08-07 08:28] LABS: INR 7.17 (0.85-1.14)
[2024-08-07] MEDS: ZOSYN 3.375 GM Q8H per EXTENDED INFUSION IV SCH (11:12)
[2024-08-07] MEDS: Phytonadione Oral Solution 5 MG/25 ML UDC PO ONE (11:17)
[2024-08-07 15:19] LABS: Calcium 7.3 mg/dL (8.6-10.3); Creatinine, Serum 1.02 mg/dL (0.67-1.17); Magnesium 1.9 mg/dL (1.9-2.7); Phosphorus 3.4 mg/dL (2.5-5.0); Potassium 3.6 mmol/L (3.5-5.0); eGFR CKD-EPI 78.1 (>60)
[2024-08-07 15:40] LABS: INR 6.62 (0.85-1.14)
[2024-08-07] MEDS: NORMOSOL-R pH 7.4 1000 mL BAG 1,000 ML IV SCH (15:47)
[2024-08-07] MEDS: KCL 20 MEQ/100 ML IVPREMIX 20 MEQ/100 ML BAG IV SCH (17:14)
[2024-08-08] MEDS: Vancomycin 1,750 MG in NS 0.9% 500 ml BAG 500 ML IVPB SCH (06:13)
[2024-08-08 06:57] LABS: Activated Partial Thrombo Time 38.6 seconds (26.0-38.0); INR 2.95 (0.85-1.14)
[2024-08-08 07:36] LABS: ABS Basophils 0.1 10^3/uL (0.0-0.1); ABS Eosinophils 0.3 10^3/uL (0.0-0.5); ABS Lymphocytes 1.4 10^3/uL (1.0-4.8); ABS Monocytes 0.6 10^3/uL (0.0-1.1); ABS Nucleated RBC 0.01 10^3/ul; Eosinophil % 4.5 %; Hematocrit 29.5 % (38-53); Mean Corpuscular Hemoglobin 32.9 pg (27-33); Mean Corpuscular Hgb Conc 33.9 g/dL (31-36); Mean Corpuscular Volume 96.9 fL (80-97); Mean Platelet Volume 8.6 fL (7.5-11.2); Nucleated Red Blood Cells % 0.2 %/100WBC (0.0-0.8); Platelet Count 200 10^3/uL (150-450); Red Blood Count 3.04 10^6/uL (4.06-5.63); Red Cell Distribution Width 14.7 % (12-17); White Blood Count 6.5 10^3/uL (3.6-10.2)
[2024-08-08 07:43] LABS: Calcium 7.1 mg/dL (8.6-10.3); Creatinine, Serum 0.86 mg/dL (0.67-1.17); Magnesium 1.5 mg/dL (1.9-2.7); Potassium 3.6 mmol/L (3.5-5.0)
[2024-08-08] MEDS: Potassium Chlor 20 meq TAB.ER PO ONE (08:54)
[2024-08-08] MEDS: Magnesium Sulfate 2 gm BAG 2 GM/50 ML BAG IVPB ONE (09:21)
[2024-08-08] MEDS: Magnesium Sulf 4 GM/100 ML IV 4,000 MG/100 ML BAG IVPB ONE (10:30)
[2024-08-09 04:33] LABS: ABS Basophils 0.1 10^3/uL (0.0-0.1); ABS Eosinophils 0.2 10^3/uL (0.0-0.5); ABS Lymphocytes 1.7 10^3/uL (1.0-4.8); ABS Monocytes 0.7 10^3/uL (0.0-1.1); ABS Neutrophils 5.8 10^3/uL (1.5-7.6); ABS Nucleated RBC 0.01 10^3/ul; Eosinophil % 2.8 %; Hematocrit 29.2 % (38-53); Hemoglobin 9.8 g/dL (13.2-16.3); Mean Corpuscular Hemoglobin 31.9 pg (27-33); Mean Corpuscular Hgb Conc 33.4 g/dL (31-36); Mean Corpuscular Volume 95.3 fL (80-97); Mean Platelet Volume 8.3 fL (7.5-11.2); Nucleated Red Blood Cells % 0.1 %/100WBC (0.0-0.8); Platelet Count 216 10^3/uL (150-450); Red Blood Count 3.07 10^6/uL (4.06-5.63); Red Cell Distribution Width 14.3 % (12-17); White Blood Count 8.5 10^3/uL (3.6-10.2)
[2024-08-09 05:11] LABS: Calcium 7.2 mg/dL (8.6-10.3); Creatinine, Serum 0.78 mg/dL (0.67-1.17); Magnesium 1.5 mg/dL (1.9-2.7); Potassium 3.6 mmol/L (3.5-5.0); eGFR CKD-EPI 94.8 (>60)
[2024-08-09] MEDS: Magnesium Sulfate 2 gm BAG 2 GM/50 ML BAG IVPB ONE (05:42)
[2024-08-09] MEDS: KCL 20 MEQ/100 ML IVPREMIX 20 MEQ/100 ML BAG IV ONE (05:47)
[2024-08-09] MEDS: Magnesium Sulfate IV 1GM/100ML 1 GM/100 ML BAG IV ONE (07:45)
[2024-08-09] MEDS: Albuterol/Ipratropium NEB.SOL (2.5/0.5 MG) 3 ML NEB.SOLN INH PRN (08:00)
[2024-08-09] MEDS ORDERED: PAIN RELIEVING RUB (MENTHOL/SALICYLATE) 1 APPLIC TUBE TOPICAL PRN (12:11)
[2024-08-09 13:09] LABS: INR 1.88 (0.85-1.14)
[2024-08-10 04:14] LABS: ABS Basophils 0.1 10^3/uL (0.0-0.1); ABS Eosinophils 0.3 10^3/uL (0.0-0.5); ABS Lymphocytes 1.6 10^3/uL (1.0-4.8); ABS Monocytes 0.7 10^3/uL (0.0-1.1); ABS Neutrophils 4.6 10^3/uL (1.5-7.6); ABS Nucleated RBC 0.01 10^3/ul; Eosinophil % 3.7 %; Hematocrit 28.5 % (38-53); Hemoglobin 9.9 g/dL (13.2-16.3); Lymphocyte % 21.8 %; Mean Corpuscular Hgb Conc 34.7 g/dL (31-36); Mean Corpuscular Volume 95.2 fL (80-97); Mean Platelet Volume 8.4 fL (7.5-11.2); Nucleated Red Blood Cells % 0.1 %/100WBC (0.0-0.8); Platelet Count 187 10^3/uL (150-450); Red Cell Distribution Width 14.1 % (12-17); White Blood Count 7.1 10^3/uL (3.6-10.2)
[2024-08-10 04:27] LABS: INR 4.19 (0.85-1.14)
[2024-08-10 04:45] LABS: Creatinine, Serum 0.67 mg/dL (0.67-1.17); Magnesium 1.4 mg/dL (1.9-2.7); Phosphorus 3.5 mg/dL (2.5-5.0); Potassium 3.5 mmol/L (3.5-5.0); eGFR CKD-EPI 99.2 (>60)
[2024-08-10] MEDS ORDERED: Vancomycin Trough Check NOTE FOLLOW UP ONE (06:00)
[2024-08-10] MEDS: Magnesium Sulfate 2 gm BAG 2 GM/50 ML BAG IVPB ONE ×2 (06:08→09:41)
[2024-08-10] MEDS: KCL 20 MEQ/100 ML IVPREMIX 20 MEQ/100 ML BAG IV ONE (06:13)
[2024-08-10] MEDS: Magnesium Sulfate IV 1GM/100ML 1 GM/100 ML BAG IV ONE ×2 (08:33)
[2024-08-10] MEDS ORDERED: Albuterol 2.5mg/3 ml (0.083%) NEB.SOLN INH PRN (11:34)
[2024-08-10] MEDS: Phytonadione IV (Adult) 10 MG in NS 0.9% 50 ML 50 ML IV ONE (12:06)
[2024-08-10] MEDS: Albuterol HFA INHALER 8 gm MDI INH SCH (13:37)
[2024-08-10] MEDS: Midazolam 5 mg/5 ml VIAL 1 mg/ml 5 ml VIAL (5 mg) ONE (14:25)
[2024-08-10 18:21] LABS: INR 2.41 (0.85-1.14)
[2024-08-10] MEDS: Phytonadione Oral Solution 5 MG/25 ML UDC PO ONE (22:28)
[2024-08-11 05:42] LABS: ABS Basophils 0.1 10^3/uL (0.0-0.1); ABS Eosinophils 0.3 10^3/uL (0.0-0.5); ABS Lymphocytes 1.8 10^3/uL (1.0-4.8); ABS Monocytes 0.7 10^3/uL (0.0-1.1); ABS Neutrophils 3.3 10^3/uL (1.5-7.6); Eosinophil % 4.4 %; Hematocrit 28.8 % (38-53); Hemoglobin 9.9 g/dL (13.2-16.3); Lymphocyte % 28.7 %; Mean Corpuscular Hemoglobin 32.5 pg (27-33); Mean Corpuscular Hgb Conc 34.4 g/dL (31-36); Mean Corpuscular Volume 94.5 fL (80-97); Platelet Count 220 10^3/uL (150-450); Red Blood Count 3.04 10^6/uL (4.06-5.63); Red Cell Distribution Width 14.1 % (12-17); White Blood Count 6.2 10^3/uL (3.6-10.2)
[2024-08-11 05:52] LABS: INR 1.88 (0.85-1.14)
[2024-08-11] MEDS: ZOSYN 3.375 GM Q8H per EXTENDED INFUSION IV SCH (06:21)
[2024-08-11 06:27] LABS: Calcium 7.3 mg/dL (8.6-10.3); Creatinine, Serum 0.7 mg/dL (0.67-1.17); Magnesium 1.4 mg/dL (1.9-2.7); Phosphorus 3.6 mg/dL (2.5-5.0); Potassium 3.5 mmol/L (3.5-5.0); eGFR CKD-EPI 97.9 (>60)
[2024-08-11] MEDS: Phytonadione Oral Solution 5 MG/25 ML UDC PO SCH (09:27)
[2024-08-11] MEDS: Potassium Chlor 20 meq TAB.ER PO ONE (12:34)
[2024-08-11] MEDS: Magnesium Sulf 4 GM/100 ML IV 4,000 MG/100 ML BAG IVPB ONE (13:48)
[2024-08-11] MEDS: Furosemide 40 mg/4 ml IV VIAL IV ONE (15:47)
[2024-08-11] MEDS: Albuterol HFA INHALER 8 gm MDI INH SCH (16:00)
[2024-08-11 20:27] LABS: INR 1.43 (0.85-1.14)
[2024-08-11 21:03] LABS: Calcium 7.7 mg/dL (8.6-10.3); Creatinine, Serum 0.79 mg/dL (0.67-1.17); Potassium 3.4 mmol/L (3.5-5.0); eGFR CKD-EPI 94.4 (>60)
[2024-08-11] MEDS: Mometasone/Formoter 200/5 MDI INH SCH (23:13)
[2024-08-11] MEDS: Phytonadione IV (Adult) 10 MG in NS 0.9% 50 ML 50 ML IV ONE (23:36)
[2024-08-12 04:22] LABS: ABS Basophils 0.1 10^3/uL (0.0-0.1); ABS Eosinophils 0.2 10^3/uL (0.0-0.5); ABS Lymphocytes 1.5 10^3/uL (1.0-4.8); ABS Monocytes 0.8 10^3/uL (0.0-1.1); Eosinophil % 4.2 %; Hematocrit 29.5 % (38-53); Hemoglobin 9.9 g/dL (13.2-16.3); Lymphocyte % 26.8 %; Mean Corpuscular Hgb Conc 33.6 g/dL (31-36); Mean Corpuscular Volume 95.2 fL (80-97); Mean Platelet Volume 8.6 fL (7.5-11.2); Platelet Count 255 10^3/uL (150-450); Red Cell Distribution Width 13.9 % (12-17); White Blood Count 5.5 10^3/uL (3.6-10.2)
[2024-08-12 04:55] LABS: Calcium 7.7 mg/dL (8.6-10.3); Creatinine, Serum 0.84 mg/dL (0.67-1.17); Magnesium 1.6 mg/dL (1.9-2.7); Potassium 3.2 mmol/L (3.5-5.0); eGFR CKD-EPI 92.7 (>60)
[2024-08-12] MEDS: NS 0.9% 1000 ml BAG 1,000 ML IV SCH (05:20)
[2024-08-12] MEDS: Magnesium Sulf 4 GM/100 ML IV 4,000 MG/100 ML BAG IVPB ONE (05:27)
[2024-08-12] MEDS: Potassium Chlor 20 meq TAB.ER PO ONE (08:27)
[2024-08-12] MEDS ORDERED: fentaNYL 100 mcg/2 ml 50 MCG/ML VIAL ONE (11:14)
[2024-08-12] MEDS ORDERED: Midazolam 5 mg/5 ml VIAL 1 mg/ml 5 ml VIAL (5 mg) ONE (11:14)
[2024-08-12] MEDS ORDERED: Lidocaine 1% VIAL 10 MG/ML 30 ML VIAL ONE (11:14)
[2024-08-12] MEDS ORDERED: ceFAZolin 2 GM PREMIX 0 GM/0 ML BAG ONE (11:32)
[2024-08-12] MEDS: ceFAZolin 2 GM PREMIX 2 GM/50 ML BAG IV ONE (13:12)
[2024-08-12] MEDS: ceFAZolin SYR FLUSH 1 GM/10 ML for pocket flush (cardiology) FLUSH ONE (13:13)
[2024-08-12] MEDS: Midazolam 10 mg/10 ml VIAL 1 mg/ml 10 ml VIAL (10 mg) IV SLOW PU ONE (13:13)
[2024-08-12] MEDS: fentaNYL 100 mcg/2 ml 50 MCG/ML VIAL IV SLOW PU ONE (13:13)
[2024-08-13 04:50] LABS: ABS Basophils 0.1 10^3/uL (0.0-0.1); ABS Eosinophils 0.2 10^3/uL (0.0-0.5); ABS Lymphocytes 1.3 10^3/uL (1.0-4.8); ABS Monocytes 0.7 10^3/uL (0.0-1.1); ABS Neutrophils 2.9 10^3/uL (1.5-7.6); Hematocrit 29.4 % (38-53); Hemoglobin 10.2 g/dL (13.2-16.3); Mean Corpuscular Hemoglobin 32.8 pg (27-33); Mean Corpuscular Hgb Conc 34.5 g/dL (31-36); Mean Corpuscular Volume 95.1 fL (80-97); Mean Platelet Volume 8.8 fL (7.5-11.2); Platelet Count 255 10^3/uL (150-450); Red Cell Distribution Width 14.2 % (12-17); White Blood Count 5.1 10^3/uL (3.6-10.2)
[2024-08-13 05:42] LABS: Calcium 7.4 mg/dL (8.6-10.3); Creatinine, Serum 0.76 mg/dL (0.67-1.17); Magnesium 1.6 mg/dL (1.9-2.7); Phosphorus 3.8 mg/dL (2.5-5.0); Potassium 3.5 mmol/L (3.5-5.0); eGFR CKD-EPI 95.5 (>60)
[2024-08-13] MEDS: Magnesium Sulf 4 GM/100 ML IV 4,000 MG/100 ML BAG IVPB ONE (08:09)
[2024-08-13] MEDS: Potassium Chlor 20 meq TAB.ER PO SCH (09:17)
[2024-08-13] MEDS: Digoxin IV 0.5 MG/2 ML AMP (0.25 MG/ML) IV SLOW PU ONE ×2 (09:44→10:19)
[2024-08-13] MEDS ORDERED: Potassium Chlor 20 meq TAB.ER PO ONE (10:34)
[2024-08-14 05:14] LABS: ABS Eosinophils 0.2 10^3/uL (0.0-0.5); ABS Lymphocytes 1.5 10^3/uL (1.0-4.8); ABS Monocytes 0.8 10^3/uL (0.0-1.1); ABS Neutrophils 2.5 10^3/uL (1.5-7.6); Eosinophil % 3.7 %; Hematocrit 29.1 % (38-53); Hemoglobin 9.9 g/dL (13.2-16.3); Mean Corpuscular Hgb Conc 34.1 g/dL (31-36); Mean Corpuscular Volume 93.8 fL (80-97); Mean Platelet Volume 9.2 fL (7.5-11.2); Nucleated Red Blood Cells % 0.1 %/100WBC (0.0-0.8); Platelet Count 262 10^3/uL (150-450); Red Cell Distribution Width 14.3 % (12-17)
[2024-08-14 05:37] LABS: Calcium 7.8 mg/dL (8.6-10.3); Creatinine, Serum 0.79 mg/dL (0.67-1.17); Magnesium 1.6 mg/dL (1.9-2.7); Potassium 3.7 mmol/L (3.5-5.0); eGFR CKD-EPI 94.4 (>60)
[2024-08-14] MEDS: Magnesium Sulfate 2 gm BAG 2 GM/50 ML BAG IVPB ONE (10:52)
[2024-08-14] MEDS: Nystatin TOP POWDER 15 GM BTL TOPICAL SCH (11:25)
[2024-08-14] MEDS: Magnesium Sulfate IV 1GM/100ML 1 GM/100 ML BAG IV ONE (12:29)
[2024-08-14 17:55] VITALS: BP 139/115
== END 2024-08-14 18:25 | disposition left against medical advice (07) | DRG 981 ==
LOC: ED 20:45 → EDHOLD 08-07 01:37 → ICU 08-07 02:27 → MEDTELE 08-14 05:57
PROVIDERS: ADMIT Student in an Organized Health Care Education/Training Program; ATTEND Internal Medicine

== ENCOUNTER 2024-08-17 17:45 | Inpatient (IN) ==
[2024-08-17] MEDS ORDERED: Norepinephrine 4 MG/250mL D5W 4,000 MCG/250 ML BAG IV ONE (18:13)
[2024-08-17 18:14] LABS: ABS Basophils 0.1 10^3/uL (0.0-0.1); ABS Eosinophils 0.2 10^3/uL (0.0-0.5); ABS Lymphocytes 1.3 10^3/uL (1.0-4.8); ABS Monocytes 1.2 10^3/uL (0.0-1.1); ABS Neutrophils 6.6 10^3/uL (1.5-7.6); ABS Nucleated RBC 0.01 10^3/ul; Eosinophil % 1.8 %; Hematocrit 31.5 % (38-53); Hemoglobin 10.3 g/dL (13.2-16.3); Lymphocyte % 13.4 %; Mean Corpuscular Hemoglobin 31.3 pg (27-33); Mean Corpuscular Hgb Conc 32.7 g/dL (31-36); Mean Corpuscular Volume 95.7 fL (80-97); Mean Platelet Volume 8.9 fL (7.5-11.2); Nucleated Red Blood Cells % 0.1 %/100WBC (0.0-0.8); Platelet Count 320 10^3/uL (150-450); Red Blood Count 3.29 10^6/uL (4.06-5.63); Red Cell Distribution Width 14.1 % (12-17); White Blood Count 9.3 10^3/uL (3.6-10.2)
[2024-08-17] MEDS: Lactated Ringers 1000 ml BAG 1,000 ML IV ONE (18:17)
[2024-08-17 18:21] LABS: INR 1.27 (0.85-1.14)
[2024-08-17 18:38] LABS: High Sens Troponin Baseline 14 pg/mL (<20)
[2024-08-17] MEDS: Norepinephrine 4 MG/250mL D5W 4,000 MCG/250 ML BAG IV SCH ×2 (18:40→21:35)
[2024-08-17 18:57] LABS: ALT 10 U/L (7-52); AST 39 U/L (13-39); Albumin/Globulin Ratio 0.6 (1-3); Alcohol, S < 13 mg/dL (<13); Alkaline Phosphatase 172 U/L (35-149); Anion Gap 9 mmol/L (2-16); Blood Urea Nitrogen 11 mg/dL (6-24); CO2 Carbon Dioxide 26 mmol/L (22-32); Calcium 8.7 mg/dL (8.6-10.3); Chloride 98 mmol/L (101-111); Creatinine, Serum 1.86 mg/dL (0.67-1.17); Digoxin 0.7 ng/ml (0.8-2.0); Globulin 3.4 g/dL (2-4); Glucose 62 mg/dL (70-100); Magnesium 1.7 mg/dL (1.9-2.7); Potassium 4.9 mmol/L (3.5-5.0); Sodium 133 mmol/L (135-145); Total Bilirubin 0.8 mg/dL (0.2-1.0); Total Protein 5.4 g/dL (6.4-8.9)
[2024-08-17] MEDS ORDERED: Norepinephrine 4 MG/250mL NS 4,000 MCG/250 ML BAG IV SCH (19:00)
[2024-08-17 19:40] LABS: High Sensitivity Troponin 1 Hr 14 pg/mL (<20)
[2024-08-17] MEDS ORDERED: Zosyn per Pharmacy NOTE FOLLOW UP SCH (20:00)
[2024-08-17] MEDS: Digoxin IV 0.5 MG/2 ML AMP (0.25 MG/ML) IV SLOW PU ONE (21:26)
[2024-08-17] MEDS: Piperacillin/Tazobac 3.375 BAG 3.375 GM/100 ML BAG IV ONE (21:26)
[2024-08-17 21:28] LABS: PCO2 Arterial 51 mmHg (35-45); PO2 Arterial 89 mmHg (80-100)
[2024-08-17] MEDS: Levalbuterol 1.25MG/0.5ML NEB.SOL INH ONE (21:35)
[2024-08-17] MEDS: Magnesium Sulfate 2 gm BAG 2 GM/50 ML BAG IVPB ONE (21:48)
[2024-08-17] MEDS: PHENYLEPHRINE DRIP IVPREMIX 50 MG/250 ML BAG IV SCH (22:06)
[2024-08-18] MEDS ORDERED: Sulfur Hexaflouride MICROSPHR 25 MG VIAL IV PRN (01:32)
[2024-08-18] MEDS: VASOPRESSIN IVPREMIX BTL 40 UNIT/100 ML BTL IV SCH ×2 (01:53→23:27)
[2024-08-18] MEDS: Dextrose 50% Syringe 50 ml 25 GM/50 ML SYRINGE IV PUSH PRN (04:31)
[2024-08-18 04:36] LABS: Hematocrit 30.3 % (38-53); Mean Corpuscular Hemoglobin 31.3 pg (27-33); Mean Corpuscular Hgb Conc 33.1 g/dL (31-36); Mean Corpuscular Volume 94.7 fL (80-97); Mean Platelet Volume 8.9 fL (7.5-11.2); Platelet Count 327 10^3/uL (150-450); Red Cell Distribution Width 14.1 % (12-17); White Blood Count 10.7 10^3/uL (3.6-10.2)
[2024-08-18 04:38] LABS: INR 1.29 (0.85-1.14)
[2024-08-18 04:39] LABS: ABS Basophils 0.1 10^3/uL (0.0-0.1); ABS Eosinophils 0.2 10^3/uL (0.0-0.5); ABS Lymphocytes 1.2 10^3/uL (1.0-4.8); ABS Monocytes 1.6 10^3/uL (0.0-1.1); ABS Neutrophils 7.6 10^3/uL (1.5-7.6); Eosinophil % 1.6 %; Lymphocyte % 11.1 %
[2024-08-18] MEDS: PHENYLEPHRINE DRIP IVPREMIX 50 MG/250 ML BAG IV SCH (04:39)
[2024-08-18] MEDS: Dextrose 50% Syringe 50 ml 25 GM/50 ML SYRINGE ONE (04:42)
[2024-08-18 04:45] LABS: PCO2 Arterial 45 mmHg (35-45); PO2 Arterial 91 mmHg (80-100)
[2024-08-18 05:06] LABS: Urine Appearance Turbid; Urine Bilirubin 1+ (Negative); Urine Blood Trace (Negative); Urine Color Dark-Yellow; Urine Glucose Negative (Negative); Urine Ketones Trace (Negative); Urine Nitrite Negative (Negative); Urine Protein Trace (Negative); Urine Urobilinogen Negative (Negative); Urine pH 5.5 (5.0-8.0)
[2024-08-18 05:10] LABS: Urine Bacteria 1+ /HPF (Absent); Urine Red Blood Cell 1+(3-5/hpf) /HPF (0-Trace); Urine Squamous Epithelial Cell Present /HPF (Absent); Urine White Blood Cell 3+(>20/hpf) /HPF (0-Trace)
[2024-08-18 05:15] LABS: Calcium 8.4 mg/dL (8.6-10.3); Creatinine, Serum 1.81 mg/dL (0.67-1.17); Magnesium 1.9 mg/dL (1.9-2.7); Potassium 4.7 mmol/L (3.5-5.0); eGFR CKD-EPI 39.2 (>60)
[2024-08-18] MEDS: Lactated Ringers 1000 ml BAG 1,000 ML IV ONE (05:34)
[2024-08-18] MEDS: DOXYcycline 100 MG in NS 0.9% 250 ml 250 ML IVPB SCH (05:35)
[2024-08-18] MEDS: Hydrocortisone INJ 100 MG/2ML 2 ML VIAL IV ONE (05:43)
[2024-08-18] MEDS: Albuterol/Ipratropium NEB.SOL (2.5/0.5 MG) 3 ML NEB.SOLN INH PRN (08:13)
[2024-08-18] MEDS: Digoxin IV 0.5 MG/2 ML AMP (0.25 MG/ML) IV SLOW PU ONE (10:11)
[2024-08-18] MEDS: Albumin Human 5% 12.5 GM/250 ML BTL IV ONE (10:13)
[2024-08-18] MEDS: cefTRIAXone 1 gm/50 mL D5W 1 GM/50 ML BAG IV SCH (13:02)
[2024-08-18] MEDS: Hydrocortisone INJ 100 MG/2ML 2 ML VIAL IV SCH (18:27)
[2024-08-19 04:53] LABS: ABS Lymphocytes 0.6 10^3/uL (1.0-4.8); ABS Monocytes 0.6 10^3/uL (0.0-1.1); ABS Neutrophils 7.4 10^3/uL (1.5-7.6); Hematocrit 27.5 % (38-53); Hemoglobin 9.3 g/dL (13.2-16.3); Lymphocyte % 7.4 %; Mean Corpuscular Hemoglobin 31.9 pg (27-33); Mean Corpuscular Hgb Conc 33.7 g/dL (31-36); Mean Corpuscular Volume 94.7 fL (80-97); Platelet Count 282 10^3/uL (150-450); Red Blood Count 2.91 10^6/uL (4.06-5.63); White Blood Count 8.7 10^3/uL (3.6-10.2)
[2024-08-19 05:13] LABS: Creatinine, Serum 1.41 mg/dL (0.67-1.17); Magnesium 1.6 mg/dL (1.9-2.7); Potassium 4.7 mmol/L (3.5-5.0); eGFR CKD-EPI 52.9 (>60)
[2024-08-19] MEDS ORDERED: Thiamine 100 MG/ML 2 ml VIAL 500 MG in NS 0.9% 250 ml 250 ML IV ONE (08:59)
[2024-08-19] MEDS: Magnesium Sulf 4 GM/100 ML IV 4,000 MG/100 ML BAG IVPB ONE (09:45)
[2024-08-19] MEDS: Gabapentin 600 mg TAB (NF) PO SCH (09:58)
[2024-08-19] MEDS: THIAMINE IV ONE (10:10)
[2024-08-19] MEDS: NS 0.9% IV ONE (10:10)
[2024-08-19] MEDS ORDERED: Thiamine 100 MG/ML 2 ml VIAL (200 mg) IV SCH (12:00)
[2024-08-19 17:15] LABS: PCO2 Arterial 39 mmHg (35-45); PO2 Arterial 106 mmHg (80-100)
[2024-08-19] MEDS: Lactated Ringers 1000 ml BAG 500 ML IV ONE (17:56)
[2024-08-19] MEDS: Enoxaparin 100 MG/ML SYR SUBCUT ONE (21:09)
[2024-08-19] MEDS ORDERED: Thiamine 100 MG/ML 2 ml VIAL 500 MG in NS 0.9% 250 ml 250 ML IV SCH (21:31)
[2024-08-19] MEDS: Thiamine 100 MG/ML 2 ml VIAL 500 MG in NS 0.9% 250 ml 250 ML IV SCH (21:38)
[2024-08-19] MEDS: THIAMINE IV SCH (21:41)
[2024-08-19] MEDS: NS 0.9% IV SCH (21:41)
[2024-08-20 04:17] LABS: ABS Lymphocytes 0.6 10^3/uL (1.0-4.8); ABS Monocytes 0.5 10^3/uL (0.0-1.1); ABS Neutrophils 7.2 10^3/uL (1.5-7.6); Hematocrit 27.5 % (38-53); Lymphocyte % 7.1 %; Mean Corpuscular Hgb Conc 32.8 g/dL (31-36); Mean Corpuscular Volume 94.6 fL (80-97); Mean Platelet Volume 8.8 fL (7.5-11.2); Platelet Count 281 10^3/uL (150-450); Red Cell Distribution Width 13.9 % (12-17); White Blood Count 8.3 10^3/uL (3.6-10.2)
[2024-08-20 04:47] LABS: Creatinine, Serum 1.03 mg/dL (0.67-1.17); Phosphorus 3.7 mg/dL (2.5-5.0); Potassium 4.2 mmol/L (3.5-5.0); eGFR CKD-EPI 77.2 (>60)
[2024-08-20] MEDS: Digoxin IV 0.5 MG/2 ML AMP (0.25 MG/ML) IV SLOW PU SCH (17:03)
[2024-08-21 04:34] LABS: ABS Lymphocytes 0.6 10^3/uL (1.0-4.8); ABS Monocytes 0.6 10^3/uL (0.0-1.1); ABS Neutrophils 6.3 10^3/uL (1.5-7.6); Hematocrit 28.3 % (38-53); Hemoglobin 9.2 g/dL (13.2-16.3); Lymphocyte % 7.7 %; Mean Corpuscular Hgb Conc 32.6 g/dL (31-36); Mean Corpuscular Volume 95.2 fL (80-97); Mean Platelet Volume 8.7 fL (7.5-11.2); Nucleated Red Blood Cells % 0.1 %/100WBC (0.0-0.8); Platelet Count 296 10^3/uL (150-450); Red Blood Count 2.98 10^6/uL (4.06-5.63); Red Cell Distribution Width 13.9 % (12-17); White Blood Count 7.5 10^3/uL (3.6-10.2)
[2024-08-21 05:08] LABS: Calcium 8.2 mg/dL (8.6-10.3); Creatinine, Serum 0.87 mg/dL (0.67-1.17); Magnesium 1.7 mg/dL (1.9-2.7); Potassium 4.2 mmol/L (3.5-5.0); eGFR CKD-EPI 91.7 (>60)
[2024-08-21] MEDS: Magnesium Sulfate 2 gm BAG 2 GM/50 ML BAG IVPB ONE ×2 (06:13→08:59)
[2024-08-21] MEDS ORDERED: Magnesium Sulfate IV 1GM/100ML 1 GM/100 ML BAG IV ONE (09:20)
[2024-08-21] MEDS: PHENYLEPHRINE DRIP IVPREMIX 50 MG/250 ML BAG IV SCH (11:17)
[2024-08-22 04:47] LABS: ABS Lymphocytes 0.5 10^3/uL (1.0-4.8); ABS Monocytes 0.4 10^3/uL (0.0-1.1); Hematocrit 26.3 % (38-53); Hemoglobin 8.8 g/dL (13.2-16.3); Lymphocyte % 12.3 %; Mean Corpuscular Hemoglobin 31.4 pg (27-33); Mean Corpuscular Hgb Conc 33.3 g/dL (31-36); Mean Corpuscular Volume 94.3 fL (80-97); Mean Platelet Volume 8.5 fL (7.5-11.2); Nucleated Red Blood Cells % 0.1 %/100WBC (0.0-0.8); Platelet Count 249 10^3/uL (150-450); Red Blood Count 2.79 10^6/uL (4.06-5.63); Red Cell Distribution Width 13.7 % (12-17); White Blood Count 3.8 10^3/uL (3.6-10.2)
[2024-08-22 06:48] LABS: Creatinine, Serum 0.72 mg/dL (0.67-1.17); Magnesium 1.7 mg/dL (1.9-2.7); Phosphorus 1.2 mg/dL (2.5-5.0); Potassium 4.2 mmol/L (3.5-5.0); eGFR CKD-EPI 97.1 (>60)
[2024-08-22] MEDS: Magnesium Sulfate 2 gm BAG 2 GM/50 ML BAG IVPB ONE (07:31)
[2024-08-22] MEDS: Potassium & Sodium Phos 250 mg = 1 PACKET PO SCH (07:33)
[2024-08-22] MEDS: Magnesium Sulfate IV 1GM/100ML 1 GM/100 ML BAG IV ONE (09:24)
[2024-08-22] MEDS: Nystatin TOP POWDER 15 GM BTL TOPICAL SCH (23:54)
[2024-08-23 06:07] LABS: ABS Lymphocytes 0.6 10^3/uL (1.0-4.8); ABS Monocytes 0.6 10^3/uL (0.0-1.1); Eosinophil % 0.1 %; Hematocrit 27.6 % (38-53); Hemoglobin 9.1 g/dL (13.2-16.3); Lymphocyte % 11.5 %; Mean Corpuscular Hemoglobin 31.6 pg (27-33); Mean Corpuscular Hgb Conc 33.1 g/dL (31-36); Mean Corpuscular Volume 95.4 fL (80-97); Mean Platelet Volume 8.9 fL (7.5-11.2); Nucleated Red Blood Cells % 0.1 %/100WBC (0.0-0.8); Platelet Count 247 10^3/uL (150-450); Red Blood Count 2.89 10^6/uL (4.06-5.63); Red Cell Distribution Width 14.3 % (12-17); White Blood Count 5.2 10^3/uL (3.6-10.2)
[2024-08-23 06:24] LABS: Anion Gap 3 mmol/L (2-16); Blood Urea Nitrogen 13 mg/dL (6-24); CO2 Carbon Dioxide 31 mmol/L (22-32); Calcium 8.2 mg/dL (8.6-10.3); Chloride 106 mmol/L (101-111); Creatinine, Serum 0.64 mg/dL (0.67-1.17); Glucose 104 mg/dL (70-100); Potassium 4.1 mmol/L (3.5-5.0); Sodium 140 mmol/L (135-145); eGFR CKD-EPI 100.6 (>60)
[2024-08-23 06:42] LABS: Magnesium 1.8 mg/dL (1.9-2.7); Phosphorus < 1.0 mg/dL (2.5-5.0)
[2024-08-23] MEDS: Potassium & Sodium Phos 250 mg = 1 PACKET PO SCH (08:36)
[2024-08-23] MEDS: NS 0.9% IV ONE (10:54)
[2024-08-23] MEDS: SODIUM PHOSPHATE IV ONE (10:54)
[2024-08-23] MEDS: Albuterol/Ipratropium NEB.SOL (2.5/0.5 MG) 3 ML NEB.SOLN INH PRN (20:49)
[2024-08-24 06:32] LABS: Calcium 7.9 mg/dL (8.6-10.3); Creatinine, Serum 0.59 mg/dL (0.67-1.17); Phosphorus 1.4 mg/dL (2.5-5.0); Potassium 3.8 mmol/L (3.5-5.0); eGFR CKD-EPI 103.1 (>60)
[2024-08-24 06:46] LABS: TSH Ultra Thyroid Stim Horm 10.81 mcIU/mL (0.34-5.60)
[2024-08-24 06:50] LABS: Free T4 0.76 ng/dL (0.61-1.12)
[2024-08-24] MEDS: Influenza Vaccine *TRI* 2024-25* 0.5 ML SYRINGE IM ONE (10:52)
[2024-08-24] MEDS: COVID VAC 24-25 (12+) (Moderna) Syringe 0.5 mL IM ONE (11:02)
[2024-08-24] MEDS: SODIUM PHOSPHATE IV ONE (11:07)
[2024-08-24] MEDS: NS 0.9% IV ONE (11:07)
[2024-08-24] MEDS ORDERED: Albuterol/Ipratropium NEB.SOL (2.5/0.5 MG) 3 ML NEB.SOLN INH SCH (19:00)
[2024-08-24] MEDS: CMC:FLUTICAS/UMECLI/VILANT 100-62.5-25 MDI (NF) INH SCH (19:11)
[2024-08-25] MEDS: Albuterol 2.5mg/3 ml (0.083%) NEB.SOLN INH PRN (09:35)
[2024-08-26 06:29] LABS: ABS Lymphocytes 0.8 10^3/uL (1.0-4.8); ABS Monocytes 0.9 10^3/uL (0.0-1.1); ABS Neutrophils 4.9 10^3/uL (1.5-7.6); Eosinophil % 0.3 %; Hematocrit 29.6 % (38-53); Lymphocyte % 11.6 %; Mean Corpuscular Hemoglobin 32.5 pg (27-33); Mean Corpuscular Hgb Conc 33.8 g/dL (31-36); Mean Corpuscular Volume 96.2 fL (80-97); Mean Platelet Volume 9.9 fL (7.5-11.2); Platelet Count 181 10^3/uL (150-450); Red Blood Count 3.08 10^6/uL (4.06-5.63); White Blood Count 6.5 10^3/uL (3.6-10.2)
[2024-08-26 06:50] LABS: Calcium 7.5 mg/dL (8.6-10.3); Creatinine, Serum 0.52 mg/dL (0.67-1.17); Potassium 4.3 mmol/L (3.5-5.0); eGFR CKD-EPI 107.1 (>60)
[2024-08-26 14:53] LABS: Phosphorus 2.1 mg/dL (2.5-5.0)
[2024-08-26] MEDS: Calcium Carb (TUMS) 500 mg CHEW TAB PO PRN (17:14)
[2024-08-26] MEDS: Albuterol 2.5mg/3 ml (0.083%) NEB.SOLN INH PRN (17:42)
[2024-08-26] MEDS: Albuterol 2.5mg/3 ml (0.083%) NEB.SOLN INH ONE (18:38)
[2024-08-27] MEDS ORDERED: Thiamine IV 100 MG/ML VIAL (only for Bannana Bags !) IVPB SCH (09:00)
[2024-08-27 09:41] VITALS: BP 118/64
[2024-08-27] MEDS: Thiamine IV 250 MG in NS 0.9% 100 ML Q24H IV SCH (09:54)
== END 2024-08-27 12:38 | DRG 643 ==
LOC: ED 17:45 → SUATTDRO 23:17 → EDHOLD 23:17 → ICU 23:21 → MEDTELE 08-22 09:03
PROVIDERS: ADMIT Internal Medicine Critical Care Medicine; ATTEND Internal Medicine